=== PATIENT | female | born 1955 | race Caucasian/White ===

== ENCOUNTER 2020-08-06 00:09 | Outpatient (CLI) | payer BC, SELFPAY ==
[2020-08-06 20:45] LABS: SARS-CoV-2 RNA PCR Negative
== END 2020-08-06 00:10 | disposition home or self-care (01) ==
LOC: ANHCOVIDDT 00:09
PROVIDERS: PCP Internal Medicine; Visit Provider Internal Medicine Gastroenterology
DX: Z01.818 Encounter for other preprocedural examination (principal); Z20.828 Contact with and (suspected) exposure to other viral communicable diseases
CPT/HCPCS: 87635; C9803; U0003

== ENCOUNTER 2020-08-09 01:37 | Day surgery (SDC) | payer BC, SELFPAY ==
[2020-08-01 11:04] VITALS: BMI 18.7
[2020-08-09 13:15] VITALS: BP 126/68; PULSE 110; RESP 16; TEMP 36.8; O2SAT 100
[2020-08-09] MEDS: LACTATED RINGERS 1,000 ML 150 ML IV CONT (13:21)
--- NOTE | 2020-08-09 13:34 | WPDANESEPPF ---
Anes - Initial Pre Proc Eval Procedure: Operation Date: 08/09/20 11:00 Proposed Procedures p Screening Colonoscopy - Shayne Burns MD Date/Time: 08/09/20 13:34 Surgeon: Shayne Burns MD Pre Op Diagnosis: Neoplasm Screening Patient Data Age: 65 Gender: F Height: 5 ft 3 in Weight: 47 kg Last Vital Signs Temp 98.3 F 08/09/20 13:15 Pulse 110 H 08/09/20 13:15 Resp 16 08/09/20 13:15 BP 126/68 08/09/20 13:15 Pulse Ox 100 08/09/20 13:15 Allergies Allergy/AdvReac Type Severity Reaction Status Date / Time oxycodone AdvReac Nausea Verified 08/09/20 13:13 propoxyphene AdvReac Nausea and Verified 08/09/20 13:13 [From VaneOsbaldo] Vomiting Home Medications Medication Instructions Recorded Confirmed Type diphenhydramine HCl 25 mg capsule 25 mg PO Q6H PRN 10/12/19 08/01/20 History ibuprofen 100 mg tablet 200 mg PO QID PRN 10/12/19 08/01/20 History cholecalciferol (vitamin D3) 1,250 50,000 unit PO WEEKLY #14 cap 06/04/20 08/01/20 Rx mcg (50,000 unit) capsule ondansetron HCl 4 mg tablet 4 mg PO Q8H PRN #20 tablet 08/09/20 08/09/20 Rx Patient hx anesthesia problems: none Family hx anesthesia problems: none PMFSH Past Medical History Medical History (Updated 08/09/20 @ 13:22 by Anant Fong MD) Anxiety History of migraine Family History Family History (Updated 10/12/19 @ 10:07 by Linda Abebe CMA) Mother Melanoma Father Heart disease Parkinson disease Social History Social History (Updated 10/12/19 @ 10:05 by Linda Abebe CMA) Smoking status: Never smoker Alcohol intake: current Living arrangements: with family Gender identity (if verbalized by the patient): Female Sexual Orientation (if Verbalized by the Patient): Straight or Heterosexual Spiritual care concerns: No Anes - Eval Final PreProcedure Day of Procedure 08/09/20 13:34 Patient weight: normal Heart: regular rate and rhythm Lungs: clear to auscultation Airway: Mallampati scale class II Neurological: alert and oriented Last oral intake: >/= 8 hours ASA classification: II Emergent: no Anesthetic plan: proceed Anesthesia type and monitoring: general GIVS and standard monitoring Informed Consent: The patient's anesthetic plan and its attendant risks and benefits were discussed with the patient/family/POA. Questions were solicited and answers provided to the satisfaction of the patient/family/POA.
--- NOTE | 2020-08-09 14:02 | PM.HPGS ---
History of Present Illness History of Present Illness Consent: Risks, benefits, and alternatives have been discussed and questions answered. Patient agrees to proceed with procedure. Chief complaint: Neoplasm Screening Narrative: Maria Del Rosario Harrell is a 65 year old female here for first screening colonoscopy Review of Systems Constitutional: Constitutional: Denies headache(s) and Denies weakness Eyes: Eyes: Denies blurry vision ENT: Reports Normal hearing present, Denies headache(s) and Denies neck pain Cardiovascular: Cardiovascular: Denies chest pain and Denies dyspnea Respiratory: Respiratory: Denies dyspnea Gastrointestinal: Gastrointestinal: Reports no additional gastrointestinal complaints Genitourinary: Genitourinary: Denies dysuria Musculoskeletal: Musculoskeletal: Denies neck pain Integumentary/Breasts: Skin/Breast: Denies dry skin Neurologic: Reports Normal hearing present, Denies headache(s) and Denies weakness Psychiatric: Psychiatric: Denies anxiety Endocrine: Endocrine: Denies change in body appearance Hematologic/Lymphatic: Hematologic/Lymphatic: Denies easy bleeding Allergic/Immunologic: Allergic/Immunologic: Denies urticaria PMFSH Past Medical History Medical History (Updated 08/09/20 @ 13:22 by Anant Fong MD) Anxiety History of migraine Family History Family History (Updated 10/12/19 @ 10:07 by Linda Abebe CMA) Mother Melanoma Father Heart disease Parkinson disease Social History Social History (Updated 10/12/19 @ 10:05 by Linda Abebe CMA) Smoking status: Never smoker Alcohol intake: current Living arrangements: with family Gender identity (if verbalized by the patient): Female Sexual Orientation (if Verbalized by the Patient): Straight or Heterosexual Spiritual care concerns: No Meds Home Medications and Allergies Home Medications Medication Instructions Recorded Confirmed Type diphenhydramine HCl 25 mg capsule 25 mg PO Q6H PRN 10/12/19 08/01/20 History ibuprofen 100 mg tablet 200 mg PO QID PRN 10/12/19 08/01/20 History cholecalciferol (vitamin D3) 1,250 50,000 unit PO WEEKLY #14 cap 06/04/20 08/01/20 Rx mcg (50,000 unit) capsule ondansetron HCl 4 mg tablet 4 mg PO Q8H PRN #20 tablet 08/09/20 08/09/20 Rx Allergies Allergy/AdvReac Type Severity Reaction Status Date / Time oxycodone AdvReac Nausea Verified 08/09/20 13:13 propoxyphene AdvReac Nausea and Verified 08/09/20 13:13 [From Negar] Vomiting Vital Signs Vital Signs - 24 hr 08/09/20 13:15 Temperature 98.3 F Pulse Rate 110 H Respiratory Rate 16 Blood Pressure 126/68 Pulse Oximetry 100 Exam Const: General: comfortable and no acute distress HENMT: General nose exam: Normal nares present Eyes: General: appearance normal, both eyes and all related structures Neck: Neck: no JVD Resp: Auscultation: clear to auscultation bilaterally Cardio: Rate: regular rate Rhythm: regular rhythm GI: Inspection: non-distended GI Palp: Yes Soft to palpation Skin: General skin exam: normal color Neuro: General: gait normal Speech: normal speech Extrem: General: normal to inspection Psych: Mental Status: mental status grossly normal Assessment and Plan Assessment and plan (1) Encounter for screening colonoscopy: Code(s): Z12.11 - Encounter for screening for malignant neoplasm of colon Status: Acute
[2020-08-09 14:22] VITALS: BP 88/56; PULSE 71; RESP 17; O2SAT 100
[2020-08-09 14:32] VITALS: BP 111/65; PULSE 66; RESP 20; O2SAT 100
[2020-08-09 14:42] VITALS: BP 118/71; PULSE 69; RESP 22; O2SAT 100
== END 2020-08-09 14:47 | disposition home or self-care (01) ==
PROVIDERS: PCP Internal Medicine; Visit Provider Internal Medicine Gastroenterology
PROC: 0DJD8ZZ Inspection of Lower Intestinal Tract, Via Natural or Artificial Opening Endoscopic (ICD-10-PCS; CPT 45378; principal; 2020-08-09 11:00)
DX: Z12.11 Encounter for screening for malignant neoplasm of colon (principal); K64.8 Other hemorrhoids
CPT/HCPCS: G0121; J2704; J7120

== ENCOUNTER 2020-08-27 12:12 | Outpatient (NON) | payer BC, SELFPAY ==
[2020-08-27 22:00] LABS: SARS-CoV-2 RNA PCR Negative
== END 2020-08-27 12:13 ==
PROVIDERS: PCP Internal Medicine; Visit Provider Internal Medicine
DX: R68.89 Other general symptoms and signs (principal); Z20.828 Contact with and (suspected) exposure to other viral communicable diseases
CPT/HCPCS: 87635; C9803; U0003

== ENCOUNTER → 2020-11-08 11:20 | Outpatient (CLI) | payer MEDICARE, BC, SELFPAY ==
[2020-11-10 08:28] LABS: SARS-CoV-2 RNA PCR Positive
== END ==
PROVIDERS: PCP Internal Medicine; Visit Provider Internal Medicine
DX: U07.1 COVID-19 (principal)
CPT/HCPCS: C9803; U0003; U0005

== ENCOUNTER 2024-03-24 10:25 | Outpatient (CLI) | payer MEDICARE, SELFPAY ==
--- NOTE | ~2024-03-24 | MM_ITS ---
EXAMINATION: MM screening vinnie BI w sandra HISTORY: Screening TECHNIQUE: Craniocaudal and mediolateral oblique 3-D tomosynthesis images were obtained and synthetic 2-D images were generated. CAD analysis was submitted and interpreted. COMPARISON: 10/05/2021 BREAST PARENCHYMAL COMPOSITION: There are scattered areas of fibroglandular density. FINDINGS: There is no evidence of suspicious mass, calcification, or architectural distortion to sugg est malignancy in either breast. There has been no suspicious interval change. IMPRESSION: 1. No mammographic evidence of malignancy. 2. Recommend routine screening mammography in one year. BI-RADS Category 1: Negative Reviewed, dictated and finalized at location B.
== END 2024-03-24 10:26 ==
LOC: MICIMG 10:26
PROVIDERS: PCP Family Medicine; Visit Provider Family Medicine
DX: Z12.31 Encounter for screening mammogram for malignant neoplasm of breast (principal)
CPT/HCPCS: 77063; 77067